=== PATIENT | female | born 1985 | race African-American/Black ===

== ENCOUNTER → 2021-04-22 03:16 | Outpatient (CLI) | payer BC, SELFPAY ==
[2021-04-22 17:50] LABS: SARS-CoV-2 RNA PCR Negative
== END ==
PROVIDERS: PCP Family Medicine; Visit Provider Obstetrics & Gynecology
DX: Z01.812 Encounter for preprocedural laboratory examination (principal); Z20.822 Contact with and (suspected) exposure to COVID-19
CPT/HCPCS: C9803; U0003; U0005

== ENCOUNTER 2021-04-23 03:07 | Day surgery (SDC) | payer BC, SELFPAY ==
[2021-04-21 12:50] VITALS: BMI 22.4
--- NOTE | 2021-04-21 13:00 | PC.NURSE ---
Report to the Outpatient Waiting Room, entrance under the green pavilion located off [facility], at time 1345 on date 04/23/21. OR Time: 1545. - You and your visitor will be asked a series of questions to screen for COVID 19 for your protection. - A mask is required within the hospital. - Only one visitor is allowed at this time. Patient visitors will be guided where to wait when not with patient. Preoperative COVID Testing Requirements: No COVID Test needed if: (proof is required; if not received patient will have Rapid Test prior to entry) - Patient has received COVID Vaccine at least 14 days prior to procedure date or - Patient has positive COVID test result within last 90 days of surgery date. COVID Test needed if above criteria is not met If not COVID vaccinated a COVID test must be conducted within 72 hours of surgery and patient is asked to isolate self from time of testing until procedure. You will go to the [facility] for your COVID testing. The [facility] is located at the corner of [address] [facility]. COVID TEST 04/22 AT 0830 You will only be called if COVID results are positive and your surgeon may reschedule your elective surgery date. Patients may have clear liquids (water, carbonated beverages, clear teas, apple juice) until 3 hours prior to surgery with a maximum of 20 ounces. - No food from midnight until time of surgery - Infants may have breast milk until 4 hours before surgery, infant formula 6 hours prior to surgery. - Children will be allowed to drink immediately following surgery. If applicable, please bring a bottle or sippy cup to assist with drinking. Juice, water, soda, and popsicles are readily available. For infants on formula, please bring formula the day of surgery. Pacifiers are allowed. Take the following medications with a SIP of water the morning of surgery: N/A Medications to discontinue per physician: VITAMINS Date to take last dose: TODAY (04/21) Please no make-up, nail albanian, hairspray, perfume, deodorant, or body powder the day of surgery. No jewelry (including any body piercings) or valuables the day of surgery, leave them at home. Please take a shower or bath the night before, or the morning of, surgery with an antibacterial soap. Wear comfortable, loose fitting clothing. Children are encouraged to wear pajamas. - Jewelry must be removed prior to entering the operating room. Rings and piercings that are not removed may be cut off. - The hospital will not accept responsibility for valuables. - Please leave all valuables, including medications, at home the day of surgery. If you are going home after surgery, a licensed shag truck driver must drive you home. - NO public transportation without another adult. - We recommend that an adult stay with you for 24 hours following discharge. - We also recommend that you do not drive, make important decision, drink alcoholic beverages, or take any drugs that were not prescribed by your health care provider for at least 24 hours after your discharge time. For Pediatric surgeries, we recommend two adults accompany the child home (only one inside the building at this time). Follow any additional instructions given to you from your surgeon. Telephone instructions given to OPAL OLIVEIRA and asked if any additional questions and then verbalized understanding. Patient advised to call surgeon office or pre surgery nurse liaison [phone] if any additional questions.
--- NOTE | 2021-04-22 14:49 | WPDANESEPPF ---
Anes - Initial Pre Proc Eval Procedure: Operation Date: 04/23/21 15:45 Proposed Procedures p Suction Dilatation and Curettage - Eddy rCuz MD Date/Time: 04/22/21 14:49 Surgeon: Eddy Cruz MD Pre Op Diagnosis: missed AB Patient Data Age: 35 Gender: F Height: 1.57 m Weight: 55.79 kg Allergies Allergy/AdvReac Type Severity Reaction Status Date / Time No Known Allergies Allergy Verified 04/23/21 14:03 Home Medications Medication Instructions Recorded Confirmed Type [id number] 1 tablet PO DAILY 04/21/21 04/23/21 History [] Patient hx anesthesia problems: none Family hx anesthesia problems: none Results Review: All pre-operative results and documents have been reviewed as part of the pre-operative evaluation. [facility] Past Medical History Medical History Missed ab Social History Social History Smoking status: Never smoker Alcohol intake: never Substance use: never Substance use type: does not use Living arrangements: with family Spiritual care concerns: No Anes - Eval Final PreProcedure Day of Procedure 04/22/21 14:49 Patient weight: normal Heart: regular rate and rhythm Lungs: clear to auscultation and normal air movement Airway: Mallampati scale class II Neurological: alert and oriented Last oral intake: >/= 8 hours ASA classification: I Emergent: no Anesthetic plan: proceed Anesthesia type and monitoring: general GIVS Results Review: All pre-operative results and documents have been reviewed as part of the pre-operative evaluation. Informed Consent: The patient's anesthetic plan and its attendant risks and benefits were discussed with the patient/family/POA. Questions were solicited and answers provided to the satisfaction of the patient/family/POA.
--- NOTE | 2021-04-23 11:35 | PM.HPGS ---
History of Present Illness History of Present Illness Consent: Risks, benefits, and alternatives have been discussed and questions answered. Patient agrees to proceed with procedure. Chief complaint: missed AB Narrative: Otis Garcia is a 35 year old female A1 at 13 weeks by lmp and 12 weeks by ultrasound presented to the office for ob visit no heart tones confirm on doppler and ultrasound x 2. Review of Systems Review of Systems: All systems reviewed & are unremarkable except as noted in HPI and below PMFSH Past Medical History Medical History Missed ab Social History Social History Smoking status: Never smoker Alcohol intake: never Substance use: never Substance use type: does not use Living arrangements: with family Spiritual care concerns: No Meds Home Medications and Allergies Home Medications Medication Instructions Recorded Confirmed Type [id number] 1 tablet PO DAILY 04/21/21 04/21/21 History [] Allergies Allergy/AdvReac Type Severity Reaction Status Date / Time No Known Allergies Allergy Verified 04/21/21 12:49 Exam Const: General: healthy appearing Resp: Effort & Inspection: normal respiratory effort Auscultation: clear to auscultation bilaterally Cardio: Rate: regular rate Rhythm: regular rhythm GI: Auscultation: normal bowel sounds Assessment and Plan Assessment and plan (1) Missed ab: Code(s): O02.1 - Missed Status: Acute Assessment and Plan: scheduled for suction dilation and curettage. Risk and benefits reviewed in detail with patient.
[2021-04-23 14:09] VITALS: BP 141/92; PULSE 91; RESP 16; TEMP 36.6; O2SAT 100
[2021-04-23] MEDS: LACTATED RINGERS 1,000 ML 30 ML IV CONT ×2 (14:40→16:48)
[2021-04-23] MEDS: ACETAMINOPHEN 500 MG TABLET 1000 MG PO (14:43)
--- NOTE | 2021-04-23 14:52 | SUR.PREOP ---
Patient given Care packet, declines to be contacted at this time
--- NOTE | 2021-04-23 15:13 | WPDHPUPDATE1 ---
History and Physical Update Update Date/Time: 04/23/21 15:13 History and Physical has been reviewed, including an updated exam of the patient. There are NO changes in the patient's condition. Risks, benefits, and alternatives have been discussed and questions answered. Patient agrees to proceed with procedure.
[2021-04-23] MEDS: LIDOCAINE HCL 1% LOCAL INJ 20 ML VIAL 10 ML INFILTRATE (16:44)
[2021-04-23 16:48] VITALS: BP 133/93; PULSE 103; RESP 14; O2SAT 99
--- NOTE | 2021-04-23 16:52 | W.PM.PROC2 ---
Procedure Note - Detailed Date of Procedure 04/26/21 Pre-op Diagnosis missed AB Post-op Diagnosis same Procedure Performed suction dilation and curettage Surgeon Eddy Cruz MD Anesthesia general Description of Procedure patient taking to or and placed in lithotomy position. a bivalve speculum was placed and uterus sounded to 13 cm. the cervix was injected with lidocaine bilaterally with 1% lidocaine. The cervix was dilated. A 12 mm suction curet was placed in cavity and activated evacuating contents in all four quadrants. a sharp curettage was performed in all four quadrants. a bedside ultrasound was performed confirming removal of contents. hemostasis was and patient taken to recovery in stable condition. Estimated Blood Loss 100 Drains No Packing No Pathology yes Condition stable Disposition PACU
[2021-04-23 17:15] VITALS: BP 151/103; PULSE 81
[2021-04-23] MEDS: oxyCODONE HCL (*CRX) 5 MG TAB IR PO (17:15)
--- NOTE | 2021-04-23 17:23 | SUR.PHASEII ---
Patient's blood type is O+. No Rhogam needed.
[2021-04-23] MEDS: ONDANSETRON HCL ODT 4 MG TABLET PO (17:43)
--- NOTE | 2021-04-23 17:56 | SUR.PHASEII ---
Patient's IV was out was out and after getting dressed she stated she felt nauseated. RN got an order for ODT sanket. Gave it to patient and then she threw-up still.
== END 2021-04-23 17:53 | disposition home or self-care (01) ==
PROVIDERS: PCP Family Medicine; Visit Provider Obstetrics & Gynecology
PROC: (CPT 59820; principal; 2021-04-23 15:45)
DX: O02.1 Missed abortion (principal)
CPT/HCPCS: 59820; 36415; 85461; 88305; A9270; J2250; J2704; J3010; J7120

== ENCOUNTER 2021-10-22 08:50 | Outpatient (CLI) | payer BC, SELFPAY | END 2021-10-22 08:51 | disposition home or self-care (01) | LOC: ANHLAB 08:55 | PROVIDERS: PCP Family Medicine; Visit Provider Obstetrics & Gynecology Gynecology | DX: O02.1 Missed abortion (principal) | CPT/HCPCS: 36415; 84702 ==

== ENCOUNTER 2021-10-25 01:10 | Day surgery (SDC) | payer BC, SELFPAY ==
[2021-10-22 15:06] VITALS: BMI 22.5
--- NOTE | 2021-10-22 15:22 | PC.NURSE ---
Report to the Outpatient Waiting Room, entrance under the green pavilion located off [facility], at time __10:00AM on date __10/25/21 . OR Time: ___12:00PM . - You and your visitor will be asked a series of questions to screen for COVID 19 for your protection. - Only one visitor is allowed at this time. - The patient visitor is requested to leave or wait in car when not with patient. - A mask is required within the hospital. Patients may have clear liquids (water, carbonated beverages, clear teas, apple juice) until 3 hours prior to surgery with a maximum of 20 ounces. - No food from midnight until time of surgery - Infants may have breast milk until 4 hours before surgery, formula 6 hours prior to surgery. - Children will be allowed to drink immediately following surgery. If applicable, please bring a bottle or sippy cup to assist with drinking. Juice, water, soda, and popsicles are readily available. For infants on formula, please bring formula the day of surgery. Pacifiers are allowed. Take the following medications with a SIP of water the morning of surgery: ___NONE Medications to discontinue per physician ____HOLD ALL VITAMINS/SUPPLEMENTS 3 DAYS PRE-OP Date to take last dose___10/22/21 Please no make-up, nail upper sorbian, hairspray, perfume, deodorant, or body powder the day of surgery. No jewelry (including any body piercings) or valuables the day of surgery, leave them at home. Please take a shower or bath the night before, or the morning of, surgery with an antibacterial soap. Wear comfortable, loose fitting clothing. Children are encouraged to wear pajamas. - Jewelry must be removed prior to entering the operating room. Rings and piercings that are not removed may be cut off. - The hospital will not accept responsibility for valuables. - Please leave all valuables, including medications, at home the day of surgery. If you are going home after surgery, a licensed dolly driver must drive you home. - NO public transportation without another adult. - We recommend that an adult stay with you for 24 hours following discharge. - We also recommend that you do not drive, make important decision, drink alcoholic beverages, or take any drugs that were not prescribed by your health care provider for at least 24 hours after your discharge time. For Pediatric surgeries, we recommend two adults accompany the child home (only one inside the building at this time). Follow any additional instructions given to you from your surgeon. If you or anyone in your household have experienced Covid symptoms in the past week, please notify your surgeon or the nurse liaison at the phone number below for possible testing. Telephone instructions given to ___PATIENT and asked if any additional questions and then verbalized understanding. Patient advised to call surgeon office or pre surgery nurse liaison [phone] if any additional questions.
--- NOTE | 2021-10-25 07:26 | WPDHPUPDATE1 ---
History and Physical Update Update Date/Time: 10/25/21 07:26 History and Physical has been reviewed, including an updated exam of the patient. There are NO changes in the patient's condition. Risks, benefits, and alternatives have been discussed and questions answered. Patient agrees to proceed with procedure.
--- NOTE | 2021-10-25 07:26 | PM.HPGS ---
History of Present Illness History of Present Illness Consent: Risks, benefits, and alternatives have been discussed and questions answered. Patient agrees to proceed with procedure. Chief complaint: inappropriate BETA, possible molar preg Narrative: Otis Garcia is a 36 year old female with positive beta hCG that [place] [address] to [address]. Ultrasound however at that time revealed no pole or yolk sac. Repeat HCG stabilized at 28,000 and patient had no bleeding she was offered d&C versus Cytotec. Patient wished to proceed with expectant management. Repeat HCG done 1 week later went up to 45,000 therefore repeat ultrasound was performed. There is now heterogeneous echogenic material filling the endometrial canal measuring 13.9mm some suspicious for possible molar . It was recommended for the patient to proceed at this time with D&C. Risks of infection, bleeding, perforation, and possible pathology were reviewed. Patient voiced understanding and agrees to proceed. Review of Systems Review of Systems: not repeated day of surgery; patient states no changes in status PMFSH Past Medical History Medical History (Updated 10/25/21 @ 07:32 by Nikole Delvalle MD) Missed ab April 2021 (normal spontaneous vaginal delivery) X3 Surgical History Surgical History (Updated 10/25/21 @ 07:31 by Nikole Delvalle MD) History of D&C April 2021 Social History Social History Smoking status: Never smoker Alcohol intake: never Substance use: never Substance use type: does not use Living arrangements: with family Additional living arrangements comments: & CHILDREN Spiritual care concerns: No Meds Home Medications and Allergies Home Medications Medication Instructions Recorded Confirmed Type [id number]-[id number] 1 tablet PO DAILY 04/21/21 10/22/21 History [] Allergies Allergy/AdvReac Type Severity Reaction Status Date / Time No Known Allergies Allergy Verified 10/22/21 15:24 Exam Const: General: healthy appearing and alert Orientation/consciousness: patient oriented x3 GI: GI Palp: Yes Soft to palpation, No Tenderness to palpation present (GI) and No Palpable mass present : External Female Exam: normal external appearance Speculum Exam - Vagina: normal appearance of the vagina and normal vaginal discharge Speculum Exam - Cervix: normal appearance of the cervix Bimanual exam- vagina & uterus: uterine size normal and consistency normal Bimanual Exam- Adnexa, other: normal adnexae and No adnexal tenderness Neuro: General: patient oriented x3 Assessment and Plan Assessment and plan (1) Inappropriate change in quantitative human chorionic gonadotropin (hCG) in early : Code(s): O02.81 - Inappropriate change in quantitative human chorionic gonadotropin (hCG) in early Status: Acute Assessment and Plan: Suspected molar . Plan is to proceed with D&C hysteroscopy.
[2021-10-25] MEDS: ACETAMINOPHEN 500 MG TABLET 1000 MG PO (10:10)
[2021-10-25 10:16] VITALS: BP 154/88; PULSE 81; RESP 16; TEMP 36.9; O2SAT 100
--- NOTE | 2021-10-25 10:25 | P.PNAN_ITS ---
Anes - Initial Pre Proc Eval Procedure: Operation Date: 10/25/21 12:00 Proposed Procedures p Suction Dilatation and Curettage - Nikole Delvalle MD Date/Time: 10/25/21 10:25 Surgeon: Nikole eDlvalle MD Pre Op Diagnosis: inappropriate BETA, possible molar preg Patient Data Age: 36 Gender: F Height: 1.56 m Weight: 54.6 kg Last Vital Signs Temp 36.9 C 10/25/21 10:16 Pulse 81 10/25/21 10:16 Resp 16 10/25/21 10:16 BP 154/88 H 10/25/21 10:16 Pulse Ox 100 10/25/21 10:16 Allergies Allergy/AdvReac Type Severity Reaction Status Date / Time No Known Allergies Allergy Verified 10/25/21 10:08 Home Medications Medication Instructions Recorded Confirmed Type [id number]-FA 1 tablet PO DAILY 04/21/21 10/25/21 History [] Patient hx anesthesia problems: none Family hx anesthesia problems: none Results Review: All pre-operative results and documents have been reviewed as part of the pre-operative evaluation. [facility] Past Medical History Medical History (Updated 10/25/21 @ 07:32 by Nikole Delvalle MD) Missed ab April 2021 (normal spontaneous vaginal delivery) X3 Surgical History Surgical History (Updated 10/25/21 @ 07:31 by Nikole Delvalle MD) History of D&C April 2021 Social History Social History Smoking status: Never smoker Alcohol intake: never Substance use: never Substance use type: does not use Living arrangements: with family Additional living arrangements comments: & CHILDREN Spiritual care concerns: No Anes - Eval Final PreProcedure Day of Procedure 10/25/21 10:25 Patient weight: normal Heart: regular rate and rhythm Lungs: clear to auscultation and normal air movement Airway: Mallampati scale class II Neurological: alert and oriented Last oral intake: >/= 8 hours ASA classification: I Emergent: no Anesthetic plan: proceed Anesthesia type and monitoring: general GIVS Results Review: All pre-operative results and documents have been reviewed as part of the pre-operative evaluation. Informed Consent: The patient's anesthetic plan and its attendant risks and benefits were discussed with the patient/family/POA. Questions were solicited and answers provided to the satisfaction of the patient/family/POA.
[2021-10-25] MEDS: LACTATED RINGERS 1,000 ML 30 ML IV CONT (10:33)
--- NOTE | 2021-10-25 12:04 | SUR.PREOP ---
Discussed delay with patient and . Voiced understanding.
[2021-10-25] MEDS: METHYLERGONOVINE MALEATE 0.2 MG/ML VIAL IM (13:06)
[2021-10-25 13:25] VITALS: BP 155/110; PULSE 98; RESP 18; O2SAT 100
--- NOTE | 2021-10-25 13:25 | P.OP_ITS ---
Procedure Note - Detailed Date of Procedure 10/25/21 Pre-op Diagnosis inappropriate BETA, possible molar preg Post-op Diagnosis Same Procedure Performed Suction D&C Surgeon Nikole Delvalle MD Anesthesia MAC and Local Findings Uterus initially sounds to 12cm. There is moderate products of conception. Upon initially dilating there are some grape-like clusters that are expulsed. Ending uterine sound is 8cm. Description of Procedure The patient was taken to the operating room and placed under anesthesia in the dorsal lithotomy position. She was prepped and draped in usual sterile fashion. [place] speculum was placed in the vagina and the cervix was grasped on the anterior lip with a tenaculum. The cervix is injected in each quadrant with 1% lidocaine. The uterus is sounded and to grape-like clusters are expulsed. The patient is given Methergine. The cervix is serially dilated with Hegar and the tenaculum site pulled through. The tenaculum was replaced. The uterus is evacuated using suction curette of 10 curved. When no further products were noted in the tubing the medium sharp curette is used to curette the endometrium. One additional pass with the suction curette is taken. The uterus is sounded again and noted to be 8cm. No additional products were noted. The tenaculum was removed and Monsel's applied to the tenaculum site. Good hemostasis is noted. All instruments are removed. Sponge, needle, and instrument counts are correct per the OR staff. Estimated Blood Loss 100 (Total products of conception) Drains No Packing No Pathology Yes (Products of conception for genetics and pathology)
[2021-10-25 13:50] VITALS: BP 177/104; PULSE 77; RESP 16
[2021-10-25 14:10] VITALS: BP 175/111; PULSE 76; RESP 16
== END 2021-10-25 14:15 | disposition home or self-care (01) ==
PROVIDERS: PCP Family Medicine; Visit Provider Obstetrics & Gynecology Gynecology
PROC: (CPT 59820; principal; 2021-10-25 12:00)
DX: O02.81 Inappropriate change in quantitative human chorionic gonadotropin (hCG) in early pregnancy (principal)
CPT/HCPCS: 59820; 88305; A9270; J2210; J2250; J2704; J3010; J7030; J7120

== ENCOUNTER 2024-09-19 13:53 | Outpatient (CLI) | payer BC, SELFPAY ==
--- NOTE | ~2024-09-19 | MM_ITS ---
EXAMINATION: MM screening maico BI w francisco HISTORY: Screening TECHNIQUE: Craniocaudal and mediolateral oblique 3-D tomosynthesis images were obtained and synthetic 2-D images were generated. CAD analysis was submitted and interpreted. COMPARISON: No prior mammogram is available for comparison at this institution. BREAST PARENCHYMAL COMPOSITION: Dense: The breasts are heterogeneously dense, which may obscure small masses FINDINGS: There are asymmetries with associated obscured mass in the upper outer quadrant of the righ t breast. There is no mammographic evidence for malignancy in the left breast. IMPRESSION: 1. Right breast asymmetries with obscured mass in the upper outer quadrant, middle third. 2. Additional mammographic views and possible breast ultrasound are recommended. BI-RADS Category 0: Incomplete: Needs additional imaging evaluation. Reviewed, dictated and finalized at location A. IMPRESSION: 1. Right breast asymmetries with obscured mass in the upper outer quadrant, mid dle third. 2. Additional mammographic views and possible breast ultrasound are recommended . BI-RADS Category 0: Incomplete: Needs additional imaging evaluation.
== END 2024-09-19 13:54 | disposition home or self-care (01) ==
LOC: MICIMG 13:55
PROVIDERS: PCP Family Medicine; Visit Provider Obstetrics & Gynecology Gynecology
DX: Z12.31 Encounter for screening mammogram for malignant neoplasm of breast (principal); R92.8 Other abnormal and inconclusive findings on diagnostic imaging of breast
CPT/HCPCS: 77063; 77067

== ENCOUNTER 2024-10-03 11:46 | Outpatient (CLI) | payer BC, SELFPAY ==
--- NOTE | ~2024-10-03 | MMUS_ITS ---
EXAMINATION: MM diagnostic maico RT w francisco, US breast RT complete HISTORY: Follow-up right breast asymmetry TECHNIQUE: Additional 3-D tomosynthesis images of the right breast were performed and synthetic 2-D i mages were generated. CAD analysis was submitted and interpreted. High resolution complete right [address] st ultrasound was performed. COMPARISON: Mammogram dated 09/19/2024 BREAST PARENCHYMAL COMPOSITION: Dense: The breasts are heterogeneously dense, which may obscure small masses FINDINGS: MAMMOGRAPHIC FINDINGS: There is a radiolucent circumscribed mass in the upper central aspect of the right breast, anterior t hird. There are no suspicious calcifications or architectural distortion in the right breast. ULTRASOUND: Complete US of all 4 quadrants of the right breast/s and retroareolar region was reviewed. At 12:00, 4 cm from the nipple there is a 8 mm cyst, likely corresponding to the mammographic finding. At 12:00 , 3 cm from the nipple there is an oval minimally lobulated hypoechoic mass with low level internal e choes measuring 8 mm, likely benign. At 10:00, 7 cm from the nipple there is a benign-appearing intra mammary lymph node measuring 9 mm. IMPRESSION: 1. Probable benign right breast masses 2. Recommend 6 month follow-up Limited right breast ultrasound BI-RADS category 3, probably benign findings. Reviewed, dictated and finalized at location A. IMPRESSION: 1. Probable benign right breast masses 2. Recommend 6 month follow-up Limited right breast ultrasound BI-RADS category 3, probably benign findings.
== END 2024-10-03 11:47 | disposition home or self-care (01) ==
LOC: MICIMG 11:47
PROVIDERS: PCP Family Medicine; Visit Provider Obstetrics & Gynecology Gynecology
DX: R92.8 Other abnormal and inconclusive findings on diagnostic imaging of breast (principal)
CPT/HCPCS: 76641; 77061; 77065; G0279

== ENCOUNTER 2025-04-07 09:06 | Outpatient (CLI) | payer BC, SELFPAY ==
--- NOTE | ~2025-04-07 | US_ITS ---
US breast RT limited 04/07/2025 09:46 Indication: Limited right breast Procedure: High-resolution Limited ultrasound of the right breast Comparison: Ultrasound dated 10/03/2024 Findings: At 12:00, 4 cm from the nipple there is an 8 mm cyst. At 12:00, 3 cm from the nipple there is an oval lobulated parallel hypoechoic mass with internal echoes, posterior acoustic enhancement and no internal vascularity measuring 10 x 10 x 6 mm compared with 8 x 5 x 6 mm on prior study. At 10:00, 7 cm from the nipple there is an intramammary lymph node measuring 9 mm without significant change. At 12:00, 3 cm from the nipple there is a 7 mm cyst. Impression: 1: Increased size of complicated hypoechoic 1 cm mass of the right breast at 12:00, 3 cm from the nipple. Recommendation: Ultrasound-guided fine-needle aspiration biopsy recommended. If fluid is not obtained, vacuum-assisted biopsy recommended at that time. BI-RADS CATEGORY 4-SUSPICIOUS ABNORMALITY Reviewed, dictated and finalized at location B. Impression: 1: Increased size of complicated hypoechoic 1 cm mass of the right breast at 12 :00, 3 cm from the nipple. Recommendation: Ultrasound-guided fine-needle aspiration biopsy recommended. If fluid is not obtained, vacuum-assisted biopsy recommended at that time. BI-RADS CATEGORY 4-SUSPICIOUS ABNORMALITY
== END 2025-04-07 09:07 | disposition home or self-care (01) ==
LOC: MICIMG 09:06
PROVIDERS: PCP Family Medicine; Visit Provider Obstetrics & Gynecology Gynecology
DX: N63.11 Unspecified lump in the right breast, upper outer quadrant (principal)
CPT/HCPCS: 76642

== ENCOUNTER 2025-04-22 09:23 | Outpatient (CLI) | payer BC, SELFPAY ==
--- NOTE | ~2025-04-22 | MMUS_ITS ---
US breast biopsy RT w image, MM post biopsy diagnostic RT EXAMINATION: US GUIDED NEEDLE BIOPSY WITH VACUUM ASSISTANCE DATE: 04/22/2025 11:09 TURF KEEPER INDICATION: Right breast mass seen on recent examination. Ultrasound-guided core biopsy is requested to evaluate for malignancy. BREAST PARENCHYMAL COMPOSITION: Dense: The breasts are heterogeneously dense, which may obscure small masses TECHNIQUE AND FINDINGS: The risks and potential benefits of the procedure were discussed with the patient, and written informed consent was obtained. After sterile preparation of the right breast, 1% lidocaine was utilized for local anesthesia. 1% lidocaine with epinephrine was used for deep anesthesia. Initial attempts were made to aspirate the mass of interest within 18-gauge needle. No fluid was obtained. The procedure was subsequently converted to biopsy. A 10G vacuum-assisted biopsy gun needle was advanced through to the outer edge of the region of interest from a superior approach utilizing sonographic guidance. A total of 4 tissue core samples were obtained through the lesion. An Inrad tissue marker clip was then placed at the biopsy site. Hemostasis was achieved. The patient tolerated procedure well and there was no evidence of immediate complication. The patient was given verbal instructions partly is from the department. Right breast mammograms to document tissue marker clip placement. The tissue samples were submitted to surgical pathology for histologic analysis. IMPRESSION: 1. Successful ultrasound-guided vacuum-assisted biopsy of right breast mass with post procedure mammogram for marker placement. Please refer to pathology report for histologic analysis. Reviewed, dictated and finalized at location B. KEEPER IMPRESSION: 1. Successful ultrasound-guided vacuum-assisted biopsy of right breast mass wi th post procedure mammogram for marker placement. Please refer to pathology rep ort for histologic analysis.
--- OUTSIDE RECORDS SUMMARY | 2025-04-22 09:43 | XMS_ITS | Clinical Summary ---
Author Organization [facility] Address [address] [place] [address] Care Team Providers Care Car Attendant Name Role Phone Torres Small MD Primary Care Provider [phone] Allergies Active Allergy Reactions Criticality Noted Date Comments Amlodipine Other (see comment) 11/11/2024 Gregorio horses Losartan Other (see comment) 11/11/2024 Hair falling out Medications hydroCHLOROthia zide (HYDRODIURIL) 25 MG tablet Take 1 tablet (25 mg total) by mouth every morning. 30 tablet 3 Active Additional Information Patient taking differently:25 mg OralPRN, Reported on 01/13/2025 potassium chloride CR (KLOR-CON M) 20 MEQ tablet Take 1 tablet (20 mEq total) by mouth daily. 30 tablet 3 Active Additional Information Patient taking differently:20 mEq OralPRN, Reported on 01/13/2025 Active Problems Problem Noted Date Diagnosed Date Palpitations 05/25/2024 Assessment & Plan (05/25/2024 3:31 PM SAFETY SEALER): Patient notes feeling her heart pause, then speed up occasional. These symptoms do not consistently occur and may have weeks/months in between occurrences. Advised patient to monitor symptoms and we can consider MCOT if symptoms occur more frequently/consistently. Patient is agreeable. Bicuspid aortic valve 11/18/2022 Assessment & Plan (01/17/2025 5:51 PM CDT): She appears to have a bicuspid aortic valve with partial fusion of the right and left cusp. At this time, I do not think that she needs aortic valve replacement. Will repeat echo next year. Nonrheumatic aortic valve stenosis 11/18/2022 Assessment & Plan (01/17/2025 5:52 PM CDT): She had mild aortic valve stenosis on her echo in 2023. Will repeat echo next year. Assessment & Plan (05/25/2024 3:28 PM SAFETY SEALER): Echo 10/2023 with EF 65-70% and evidence of a bicuspid aortic valve and mild aortic valve stenosis. CTA coronary 01/2023 shows a trileaflet aortic valve. Patient currently asymptomatic. Advised patient to monitor for shortness of breath, fatigue, dizziness, or near syncope. Nonrheumatic aortic valve insufficiency 11/19/19 Assessment & Plan (01/17/2025 5:52 PM CDT): Her aortic regurgitation was called moderate, but I feel it is in the mild to moderate range. Will reassess on next year's echo. Mitral valve regurgitation 10/05/2022 Primary hypertension 08/08/2022 Assessment & Plan (01/17/2025 5:52 PM CDT): Her blood pressure is elevated in the office seems well-controlled at home. Encouraged home blood pressure monitoring. Continue antihypertensive therapy including hydrochlorothiazide. Assessment & Plan (05/25/2024 3:25 PM SAFETY SEALER): Blood pressure elevated in office today at 146-92mmHg. Patient monitors blood pressure at home and reports to taking HCTZ about 1x per week. She notes headaches when blood pressure is elevated. She denies tinnitus, chest pain, or dizziness. She previously took amlodipine and losartan and stopped due to side effects. Amlodipine - muscle cramps. Losartan - hair loss. Advised patient to monitor blood pressure consistently at home for 1-2 weeks and send in results. Informed patient she may need to take HCTZ daily instead of 1x/week if blood pressures are consistently elevated at home. She notes concern regarding hair loss with taking blood pressure medication daily. Systolic murmur 08/08/2022 Family History Medical History Relation Comments No Known Problems Brother 1 No Known Problems Brother 2 No Known Problems Father Stent Cardiac Maternal Grandmother No Known Problems Mother No Known Problems Sister 1 No Known Problems Sister 2 Relation Status Comments Brother 1 Alive Brother 2 Alive Father Alive Maternal Grandmother Mother Sister 1 Alive Sister 2 Alive Social History Tobacco Use Types Packs/Day Years Used Date Smoking Tobacco: Never Smokeless Tobacco: Never Alcohol Use Standard Drinks/Week Comments Not Currently 1.7 (1 standard drink = 0.6 oz p ure alcohol) Comments No Sex and Gender Information Value Date Recorded Sex Assigned at Female 10/03/2022 2:12 PM CDT Legal Sex Female 5:26 PM CDT Gender Identity Female 10/03/2022 2:12 PM CDT Sexual Orientation Straight 10/03/2022 1: 37 PM CDT Occupation Industry Job Start Date Job End Date HOMEMAKER Not on file Not on file Not on file Last Filed Vital Signs Vital Sign Reading Time Taken Comments Blood Pressure 160/100 01/13/2025 12:41 PM CDT Pulse 89 01/13/2025 12:41 PM CDT Temperature 36.4 C (97.6 F) 03/19/2021 12:18 PM CDT Respiratory Rate 20 01/17/2023 11:00 AM CDT Oxygen Saturation 98% 01/13/2025 12:41 PM CDT Inhaled Oxygen Concentration - - Weight 51.7 kg (114 lb) 01/13/2025 12:41 PM CDT Height 157.5 cm (5' 2) 01/13/2025 12:41 PM CDT Body Mass Index 20.85 01/13/2025 12:41 PM CDT Plan of Treatment Upcoming Encounters Date Type Department Care Team (Late st Contact Info) Description 01/13/2026 11:00 AM CDT Appointment [facility] Non Invasive Cardiology [address] [place], [place] [id number] Manuel Alfaro MD Three [facility]. [address] [place], [place] [id number] 01/19/2026 11:00 AM CDT Office Visit Parrish Plasencia-O'Fallo noman THREE [facility], [address] [place] [address] Marychuy Christopher PA [address] [facility], [address] [place], [place] [id number] Health Maintenance Due Date Last Done Comments Cervical Cancer Screening Pa p Smear (Age 30 to 64) Every 3 Years 1985 Annual Physical 08/21/1986 Hepatitis C 08/21/2001 DTaP, Tdap and Td Vaccines ( 1 - Tdap) 08/21/2002 Hepatitis B Vaccines (1 of 3 - 19+ 3-dose series) 08/21/2002 Pneumococcal Vaccine: Pediat rics (0 to 5 Years) and At-Risk Patients (6 to 49 Years) (1 of 2 - PCV) 08/21/2002 HPV Vaccines (1 - 3-dose SCD M series) 08/21/2010 Cervical Cancer Screening Pa p with HPV Testing (Age 30 to 64) Every 5 Years 08/21/2013 Cervical Cancer Screening with HPV 08/21/2013 Mammogram Screening 2023 COVID-19 Vaccine (2024-2 6 season) 2025 Influenza Adult (#1) 2025 Hepatitis A Vaccines Aged Out No long er eligible based on patient's age to complete this topic Meningococcal B Vaccine Aged Out No l onger eligible based on patient's age to complete this topic Meningococcal Vaccine Aged Out No j luis adrianna eligible based on patient's age to complete this topic RSV Immunizations Under 20 Months Aged Out No longer eligible based on patient's age to complete this topic Insurance [facility] Care Teams Car Attendant Relationship Specialty Start Date End Date Torres Small MD PCP - General FAMILY PRACTICE 03/19/21
--- OUTSIDE RECORDS SUMMARY | 2025-04-22 09:43 | XMS_ITS | Clinical Summary ---
Author Organization [facility] Address [address] [place] [address] Care Team Providers Care Senior Applications Analyst Name Role Phone Torres Small MD Primary Care Provider [phone] Source Comments [facility],non-owned Affiliates and Associated Physician Practices is amultiple site organization consisting of ambulatory clinics and hospital sitesin [place], [place], [place] and [place]. This disclosure is being madepursuant to the Care Everywhere program and may not contain all information available regarding this patient. Last updated 18.[facility] [employer] Allergies No known active allergies Medications * Be aware that medications may not be up to date on this document. Alwaysverify current medications with the patient. Vit-Fe Fumarate-FA ( VITAMIN) 28-0.8 MG tablet Take 1 Tab by mouth once daily. Active ferrous sulfate 325 (65 FE) MG tablet Take 325 mg by mouth once daily. Active hydrocodone-acet aminophen (NORCO) 5-325 MG tablet Take 1-2 Tabs by mouth every 4 hours as needed for Pain. 40 Tab 0 04/02/2014 Active ibuprofen (MOTRIN) 600 MG tablet Take 1 Tab by mouth every 6 hours as needed for Pain. 60 Tab 2 04/02/2014 Active Active Problems Problem Noted Date Diagnosed Date Two vessel umbilical cord 03/24/2014 Hx of pre-term labor 01/03/2014 Overview (01/03/2014): G2- dilated to 2 cm at 18 weeks; on bedrest and procardia; delivered at 37 wks for Pre-E G3- dilated early; on bedrest and procardia; delivered at 38 wks Hx of pre-eclampsia in prior , currentl y 01/03/2014 Overview (01/03/2014): In G2 Supervision of normal 01/03/2014 Overview (03/31/2014): Datinw3d US O+/Ab neg/Rubella immune/HepB neg/RPR NR/HIV NR GCT: 128 GBS: neg on 01/03 Abnormal quad screen T18 risk 1:47 11/14/2013 Overview (01/03/2014): Amniocentesis 11/2013- showed disomy 21, 18, 13, and no evidence of sex chromosome aneuploidy Family History Medical History Relation Name Comments Arthritis Neg Hx Bleeding Disorders Neg Hx Cancer Neg Hx Clotting Disorder Neg Hx Diabetes Neg Hx Genetic/Metabolic Disease Neg Hx Heart Disease Neg Hx Hypertension Neg Hx Kidney Disease Neg Hx Multiple Births Neg Hx Labor Neg Hx Sickle Cell Anemia Neg Hx Stroke Neg Hx Toxemia Neg Hx Tuberculosis Neg Hx Twins Neg Hx Social History Tobacco Use Types Packs/Day Years Used Date Smoking Tobacco: Never Smokeless Tobacco: Never Tobacco Cessation:Counseling Given: Yes Alcohol Use Standard Drinks/Week Comments No 0 (1 standard drink = 0.6 oz pur e alcohol) Comments No Sex and Gender Information Value Date Recorded Sex Assigned at Not on file Legal Sex Female 6:29 AM VISITOR SERVICES COORDINATOR Gender Identity Not on file Sexual Orientation Not on file Last Filed Vital Signs Vital Sign Reading Time Taken Comments Blood Pressure 121/87 04/02/2014 8:35 AM CDT Pulse 69 04/02/2014 8:35 AM CDT Temperature 36.7 C (98.1 F) 04/02/2014 8:35 AM CDT Respiratory Rate 16 04/02/2014 8:35 AM CDT Oxygen Saturation 100% 04/02/2014 8:35 AM CDT Inhaled Oxygen Concentration - - Weight 61.5 kg (135 lb 9.6 oz) 03/31/2014 4:30 P M CDT Height 154.9 cm (5' 1) 03/31/2014 4:30 PM CDT Body Mass Index 25.62 03/31/2014 4:30 PM CDT Plan of Treatment Health Maintenance Due Date Last Done Comments LIPID TESTING 1985 MAMMOGRAM 1985 HIV SCREENING 08/21/1998 HEPATITIS C SCREENING 08/17/2001 DTAP/TDAP/TD VACCINES (1 - Tdap) 08/21/2002 HEPATITIS B VACCINE (1 of 3 - 19+ 3-dose series) 08/21/2002 HPV VACCINE (1 - 3-dose SCDM series) 08/21/2010 DEPRESSION SCREENING 06/12/2024 COVID-19 VACCINE ( - 2023-2 5 season) 2025 INFLUENZA VACCINE (#1) 2025 ZOSTER VACCINE (1 of 2) 08/21/2033 HIB VACCINE Aged Out No longer eligi ble based on patient's age to complete this topic MENINGOCOCCAL (Group B) VACC INE SHARED DECISION-MAKING Aged Out No longer eligibl e based on patient's age to complete this topic MENINGOCOCCAL GROUPS A/C/Y/W VACCINE Aged Out No longer eligible b ased on patient's age to complete this topic PNEUMOCOCCAL VACCINE Aged Out No long er eligible based on patient's age to complete this topic Insurance [facility] Advance Directives * Full Code (Latest Code Status on File) Date Activated Date Inactivated Comments 03/31/2014 5:07 PM 04/02/2014 3:07 PM * Full Code Date Activated Date Inactivated Comments 01/03/2014 2:06 AM 01/05/2014 7:15 PM Care Teams Senior Applications Analyst Relationship Specialty Start Date End Date Torres Small MD [address] [place] [address] PCP - General Family Medicine 01/03/14
--- OUTSIDE RECORDS SUMMARY | 2025-04-22 09:43 | XMS_ITS | Clinical Summary ---
Author Organization [place] [id number] [facility] Address [address] [place] [address] Care Team Providers Care Investments Manager Name Role Phone Unavailable Primary Care Provider Unavailabl e Allergies No known active allergies Medications amLODIPine (NORVASC) 5 mg tabletIndication s:Benign essential HTN Take 1 tablet (5 mg total) by mouth daily 90 tablet 1 11/25/2021 Active Active Problems Problem Noted Date Diagnosed Date Non-seasonal allergic rhinitis due to pollen Weight loss 08/23/2017 Hx of pre-eclampsia in prior , currentl y 01/03/2014 Overview (04/26/2019): In G2 Hx of pre-term labor 01/03/2014 Overview (04/26/2019): G2- dilated to 2 cm at 18 weeks; on bedrest and procardia; delivered at 37 wks for Pre-E G3- dilated early; on bedrest and procardia; delivered at 38 wks Abnormal findings on screening 014 Overview (04/26/2019): Amniocentesis 11/2013- showed disomy 21, 18, 13, and no evidence of sex chromosome aneuploidy Surgical History Surgery Date Site/Laterality Comments DILATION AND CURETTAGE OF UTERUS x2 Family History Medical History Relation Name Comments Arthritis Father No Known Problems Maternal Grandfather Hypertension Maternal Grandmother No Known Problems Mother No Known Problems Paternal Grandfather No Known Problems Paternal Grandmother Relation Name Status Comments Father Alive Maternal Grandfather Maternal Grandmother Mother Paternal Grandfather Paternal Grandmother Social History Tobacco Use Types Packs/Day Years Used Date Smoking Tobacco: Never Smokeless Tobacco: Never Alcohol Use Standard Drinks/Week Comments Not Currently 0 (1 standard drink = 0.6 oz pur e alcohol) AUDIT-C Answer Date Recorded Q1: How often do you have a drink containing alcohol? Never 11/25/2021 Q2: How many drinks containi ng alcohol do you have on a typical day when you are drinking? Patient does not drink Q3: How often do you have si x or more drinks on one occasion? Never 11/25/2021 PHQ-2 Answer Date Recorded PHQ-2 Total Score (If total score is 3 or more points, staff should administer the PHQ-9) 2 11/25/2021 Personal Safety Answer Date Recorded Getting School Help Needed Not on file 06/14 Comments Unknown Sex and Gender Information Value Date Recorded Sex Assigned at Not on file Legal Sex Female 6:43 PM LEATHER SKINNER Gender Identity Not on file Sexual Orientation Not on file Last Filed Vital Signs Vital Sign Reading Time Taken Comments Blood Pressure 138/104 11/25/2021 3:42 PM CDT Pulse 82 11/25/2021 3:42 PM CDT Temperature 37.2 C (99 F) 11/25/2021 3:42 PM CDT Respiratory Rate 18 11/25/2021 3:42 PM CDT Oxygen Saturation 99% 11/25/2021 3:42 PM CDT Inhaled Oxygen Concentration - - Weight 54.4 kg (120 lb) 11/25/2021 3:42 PM CDT Height 157.5 cm (5' 2) 11/25/2021 3:42 PM CDT Body Mass Index 21.95 11/25/2021 3:42 PM CDT Plan of Treatment Not on file Insurance [facility] [employer]afe [place]
--- NOTE | 2025-04-22 10:53 | S_PTH ---
PATIENT: Otis Garcia LOC: [facility] U#:[id number] AGE/SX: 39/F ROOM: RE04/22/[address]: Katlin Masters MD : 1985 BED: DIS: 04/22/2025 SPEC #: [id number] RECD: 04/22/25 12:27 STATUS: ROMEO RETex #: [id number] CHONG: 04/22/25 10:[address]: Katlin Masters DEPT: [facility] Surgical RECD BY: Anuja Deshpande ENTERED: 04/22/25 12:27 SP TYPE: Surgical OTHR DR: Torres Small, Tissues: A - Breast Biopsy Procedures: Hematoxylin and Eosin Stain Gross and Microscopic Level 4
== END 2025-04-22 09:24 | disposition home or self-care (01) ==
PROVIDERS: PCP Family Medicine; Visit Provider Surgery
DX: N63.15 Unspecified lump in the right breast, overlapping quadrants (principal); R92.8 Other abnormal and inconclusive findings on diagnostic imaging of breast
CPT/HCPCS: 19083; 77065; 88305; A4648